=== PATIENT | female | born 2005 | race Caucasian/White ===

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

== ENCOUNTER 2024-12-31 13:42 | Emergency (ER) | payer MEDICAID, OTHER ==
[~2024-12-31] VITALS: Ht 167.6 cm; Wt 64.0 kg
[~2024-12-31 13:42] MED LIST changes: +ONDA-243 PO; -ONDA4TAB12 PO
[2024-12-31 14:13] VITALS: RESP 16; TEMP 97.9
[2024-12-31] MEDS ORDERED: AMOX-117 PO (18:10)
[2024-12-31] MEDS ORDERED: IBUP-860 PO (18:10)
--- NOTE | 2024-12-31 18:11 | Physician Documentation ---
HPI ~ General Chief Complaint: Jaw Pain Stated Complaint: JAW PAIN Time Seen by MD: 17:43 Primary Medical Doctor: [facility] Source: patient Mode of Arrival: POV Exam Limitations: no limitations History of Present Illness HPI Comment 19 Year old female with intermittent right upper jaw pain and dental pain for the past few days. Patient did have a dental appointment but was unable to attend and had to reschedule does still have wisdom teeth. Concerned for dental infection or abscess. No fevers. No difficulty breathing or swallowing. Has some intermittent pain that radiates down to the right lower jaw. Concerned because she had some cheek swelling. Patient denies fevers Medication Reconciliation Allergies: Coded Allergies: No Known Allergies (Unverified , 12/31/24) Scheduled Amox Tr/Potassium Clavulanate (Augmentin 875-125 Tablet), 1 TAB PO Q12H Cefdinir* (Cefdinir*), 1 CAP PO BID Scheduled PRN Ibuprofen (Ibu), 1 TAB PO Q4HPRN PRN for pain ONDANSETRON ODT 4mg tablet (Ondansetron Odt), 1 TABLET PO Q6H PRN for nausea/vomiting Miscellaneous Medications Home Med List (No Home Medications), (Reported) Home Med List (No Home Medications), (Reported) Past Medical History Past Medical History: No Pertinent History Past Surgical History: no surgical history Alcohol Use: None Drug Use: none Lives with: Family Lives In: Home Occupation: child Physical Exam Vital Signs: Temperature: 97.9, Source: Temporal, Heart Rate: 73, Respiratory Rate: 16, BP: 111/71, Pulse Oximetry: 99, Weight: 64.000 Oxygen Flow Rate: 0 Progress Results/Orders Results/Orders Vital Signs 12/31/24 12/31/24 14:13 18:15 Temp 97.9 Pulse 73 66 Resp 16 B/P (MAP) 111/71 130/80 (97) Pulse Ox 99 100 O2 Flow Rate 0 Departure Time of Disposition: 18:09 Disposition: 01 HOME / SELF CARE / HOMELESS Impression: Primary Impression: Jaw pain Additional Impression: Dental infection Condition: Stable Discharge Instructions: Dental Pain Additional Instructions: Call remake and maintain dental appointment as dental x-rays we will be more helpful in differentiating what is causing some of the jaw mouth pain. Take medications as prescribed monitor for any new or worsening symptoms and follow up with primary care Referrals: NO PRIMARY CARE PROVIDER (PCP) Prescriptions Ibuprofen (Ibu) 400 Mg Tablet 1 TAB PO Q4HPRN PRN for pain for 5 Days, #30 TAB 0 Refills NEEDED FOR PAIN Prov: DELORIS WASHINGTON NP 12/31/24 Amox Tr/Potassium Clavulanate (Augmentin 875-125 Tablet) 1 Each Tablet 1 TAB PO Q12H for 7 Days, #14 TAB Prov: DELORIS WASHINGTON NP 12/31/24 Education Educated: Patient Educated regarding: diagnosis, treatment, need for follow up Signature Scribe Signature: . Attestation: I have reviewed this case [id number] with the PA, including physical examination, laboratory and imaging results as appropriate. The patient was evaluated [id number] and I agree with the PA's notes. I agree with the findings, evaluation and disposition. DELORIS WASHINGTON NP Dec 31, 2024 18:11 ALEX MIRELES MD Jan 01, 2025 16:26
[2024-12-31 18:15] VITALS: BP 130/80; PULSE 66; O2SAT 100
== END 2024-12-31 18:27 | disposition home or self-care (01) ==
LOC: ER 13:42
DX: K04.7 Periapical abscess without sinus (principal); R68.84 Jaw pain
CPT/HCPCS: 99283

== ENCOUNTER 2025-05-09 13:35 | Emergency (ER) | payer OTHER ==
[~2025-05-09] VITALS: Ht 165.1 cm; Wt 64.7 kg
[~2025-05-09 13:35] MED LIST changes: +IBUP-860 PO
[2025-05-09 14:27] LABS: URINE HCG NEGATIVE (NEG)
[2025-05-09 14:30] LABS: LEUKOCYTE ESTERASE ,URINE MODERATE (Neg); NITRITES, URINE NEGATIVE (Neg); OCCULT BLOOD,URINE LARGE (Neg)
[2025-05-09 14:32] LABS: UA COLLECTION TYPE CLN CATCH MIDSTREAM
[2025-05-09 14:37] LABS: MUCUS STRANDS NONE SEEN /LPF (Neg); SQUAMOUS EPITHELIAL CELL,UR FEW /LPF (FEW); WBC CLUMPS,URINE MANY /HPF (NEGATIVE)
[2025-05-09] MEDS ORDERED: amox tr/potassium clavulanate 875/125mg TAB PO ONE (18:05)
[2025-05-09] MEDS: normal saline 1000ml 1,000 ML IVB ONE (18:24)
[2025-05-09 18:36] LABS: MEAN PLATELET VOLUME 7.8 FL (7.4-10.4); RED CELL DISTRIBUTION WIDTH 13.6 % (11.5-14.5)
[2025-05-09 18:49] LABS: CREATININE 0.66 MG/DL (0.40-0.90); TOTAL CARBON DIOXIDE 27.7 MMOL/L (24-32); eCRCL 121 ML/MIN; eGFR > 90 ML/MIN
[2025-05-09] MEDS: ketorolac trometh 30MG/ML vial 30 MG/ML VIAL IV ONE (18:52)
--- NOTE | 2025-05-09 19:12 | Physician Documentation ---
History of Present Illness Chief Complaint: Flank Pain Stated Complaint: KIDNEY STONE Time Seen by MD: 18:02 [facility] Mode of Arrival: POV HPI 20-year-old female presents to the ED with a complaint of pelvic pain flank pain nausea vomiting she states she has a history of kidney stone thinks she may have a UTI as well. Aortic during triage Day of Onset: May 09, 2025 Medication Reconciliation Allergies: Coded Allergies: No Known Allergies (Unverified , 05/09/25) Scheduled Cefdinir* (Cefdinir*), 1 CAP PO BID Scheduled PRN Ibuprofen (Ibu), 1 TAB PO Q4HPRN PRN for pain ONDANSETRON ODT 4mg tablet (Ondansetron Odt), 1 TABLET PO Q6H PRN for nausea/vomiting Miscellaneous Medications Home Med List (No Home Medications), (Reported) Home Med List (No Home Medications), (Reported) Past Medical History Past Medical History: No Pertinent History Past Surgical History: no surgical history Alcohol Use: None Drug Use: none Lives with: Family Lives In: Home Occupation: child Physical Exam Vital Signs: Temperature: 97.4, Source: Temporal, Heart Rate: 134, Respiratory Rate: 16, BP: 135/81, Pulse Oximetry: 98, Weight: 64.700 Oxygen Flow Rate: 0 Physical Exam General: Alert, no apparent distress. HEENT: PERRL, EOMI, no injection, moist mucous membranes. Neck: Full range of motion. Respiratory: Lungs clear, no respiratory distress. Chest: No accessory muscle use. Cardiovascular: Regular rate and rhythm, no murmurs. Gastrointestinal: Soft, nontender, nondistended. Bowels sounds present. Extremities: Normal range of motion, no deformity. Neurologic: Oriented x4. Psychiatric: Normal mood and affect. Skin: Normal color, warm and dry. No edema, no ecchymosis. Progress Results/Orders Results/Orders Orders - GARRISON WALSH TRIM MASTER OPERATOR Urinalysis, Cult If Indicated (05/09/25 18:04) * Iv Access / Saline Lock * (05/09/25 18:04) Ct Abdomen Pelvis (05/09/25 18:35) Completed Orders - GARRISON WALSH TRIM MASTER OPERATOR Cbc/Diff (05/09/25 18:04) BMP (05/09/25 18:04) Lipase (05/09/25 18:04) CMP (05/09/25 18:04) Lacticsepsis (05/09/25 18:04) Normal Saline 1000ml (0.9% Sodium Chlori (05/09/25 18:05) Ketorolac Trometh 30mg/Ml Vial (Toradol (05/09/25 18:25) Ct Abdomen Pelvis (05/09/25 18:35) Medications Received in ER Medications (Trade) Dose Ordered Sig/Cyndie Route PRN Reason Start Time Stop Time Status Last Admin Dose Admin Sodium Chloride 1,000 ml @ 1,000 mls/hr Q1H ONCE IVB 05/09/25 18:05 05/09/25 19:04 DC 05/09/25 18:24 1,000 MLS/HR (Toradol inj. 30mg/ml) 30 mg ONCE ONCE IV 05/09/25 18:25 05/09/25 18:27 DC 05/09/25 18:52 30 MG Vital Signs 05/09/25 05/09/25 05/09/25 13:49 18:35 18:52 Temp 97.4 Pulse 134 Resp 18 16 16 B/P (MAP) 135/81 Pulse Ox 98 O2 Flow Rate 0 Laboratory Tests Test 05/09/25 13:52 05/09/25 18:20 Urine Specimen Description Cln catch midstream Urine Color Yellow Urine Clarity Turbid Urine pH 6.5 Urine Specific [place] 1.025 Urine Protein 100 H Urine Glucose (UA) Negative Urine Ketones 15 H Urine Occult Blood Large H Urine Nitrite Negative Urine Bilirubin Small Urine Urobilinogen 1.0 Urine Leukocyte Esterase Moderate H Urine RBC 20-50 Urine WBC Tntc H Urine WBC Clumps Many Urine Squamous Epithelial Cells Few Urine Bacteria Few Urine Mucus None seen Urine Culture Indicated Indicated Volume Urine Centrifuged 2 ml Urine HCG, Qualitative Negative Urine Comment Low volume White Blood Count 8.7 Red Blood Count 4.56 Hemoglobin 15.0 Hematocrit 44.0 Mean Corpuscular Volume 96.5 Mean Corpuscular Hemoglobin 32.9 H Mean Corpuscular Hemoglobin Concent 34.0 Red Cell Distribution Width 13.6 Platelet Count 288 Mean Platelet Volume 7.8 Neutrophils (%) (Auto) 79.3 H Lymphocytes (%) (Auto) 11.6 L Monocytes (%) (Auto) 8.7 Eosinophils (%) (Auto) 0 Basophils (%) (Auto) 0.4 Neutrophils # (Auto) 6.9 Lymphocytes # (Auto) 1.0 L Monocytes # (Auto) 0.8 Eosinophils # (Auto) 0.0 Basophils # (Auto) 0.0 CBC Comment Sodium Level 137 Potassium Level 3.6 Chloride Level 101 Carbon Dioxide Level 27.7 Anion Gap 8 Blood Urea Nitrogen 3 L Creatinine 0.66 Estimated GFR/1.73 m2 > 90 BUN/Creatinine Ratio 4.5 L Glucose Level 99 Lactic Acid Level 1.1 Calcium Level 9.3 Total Bilirubin 0.4 Aspartate Amino Transf (AST/SGOT) 34 Alanine Aminotransferase (ALT/SGPT) 62 Alkaline Phosphatase 114 Total Protein 7.9 Albumin 4.4 Globulin 3.5 Albumin/Globulin Ratio 1.3 Lipase 27 Chemistry Comments Microbiology Date/Time Source Procedure Growth Status 05/09/25 14:39 Urine Clean Catch Midstream Urine Culture - Preliminary Culture received. Resulted Medical Decision Making Additional information obtaine: old records Findings Initially presented with concerns over possible kidney stone however her CT fin dings were negative for any calculus. Urinalysis is positive for RBCs and white blood cell count with a minor bacteria patient maintains that she does not have any found smelling urine or discharge but reports burning urination. She is currently sexually active in his not overly forthcoming regarding this I am moderately suspicious for an STI. I am going to treat her with Rocephin intramuscularly and discharge her on doxycycline Differential Dx:Considerations: Bowel obstruction, Ischemic bowel, Pancreatitis, PID, Urinary obstruction, Urinary tract infection Departure Disposition: HOME / SELF CARE / HOMELESS Impression: Primary Impression: Acute urinary tract infection Condition: Stable Discharge Instructions: Urinary Tract Infection, Adult, [id number] Referrals: NO PRIMARY CARE PROVIDER (PCP) Prescriptions Doxycycline Monohydrate (Doxycycline Monohydrate) 100 Mg Capsule 1 CAP PO Q12H for 10 Days, #20 CAP Prov: GARRISON WALSH NP 05/09/25 Signature Scribe Signature: Attestation: Scribed for Garrison Walsh Soil Checker by Garrison Rust NP . 05/09/25 19:11 GARRISON WALSH NP May 09, 2025 19:12
--- NOTE | 2025-05-09 19:13 | RADIOLOGY REPORT ---
EXAM: CT CT ABDOMEN PELVIS History: kidney stones Comparison Study: CT ABDOMEN PELVIS on DOS: 12/10/20 TECHNIQUE: Multidetector CT of the abdomen and pelvis without without IV contrast. Axial, coronal and sagittal multiplanar reformats were obtained from the axial data set by the technologist. Radiation Dose Information: CT Dose: CTDI volume is 10.72 mGy. Dose-length product is 486.44 mGy*cm FINDINGS: The lung bases are clear. Partially visualized heart is unremarkable. 2.2 cm left hepatic lobe cyst adjacent to the falciform ligament. Mild hepatosplenomegaly. Gallbladder, pancreas and adrenal glands are unremarkable. Kidneys and ureters are unremarkable. Mild wall thickening of the Urinary bladder which is most likely from inadequate distention. Stomach is unremarkable. Small bowel loops unremarkable. Appendix is not completely visualized with a visualized appendix unremarkable. Without complete visualization of the appendix, can not exclude acute appendicitis. Small to moderate amount of fecal material within the colon. No evidence of intraperitoneal free air or free fluid. No evidence of aortic aneurysm. Slightly prominent Mesenteric lymph nodes of the right lower abdominal quadrant measuring up to 0.5 cm in short axis. The soft tissues are unremarkable. No evidence of acute osseous abnormalities. IMPRESSION: Mild wall thickening of the urinary bladder with be from inadequate distention/ cystitis. Small to moderate amount of fecal material within the colon. Slightly prominent mesenteric lymph nodes which are be reactive. Hepatosplenomegaly. Small hepatic cyst.
[2025-05-09] MEDS ORDERED: DOXY-460 PO (19:56)
[2025-05-09] MEDS: CefTRIAXone 1000mg IM Kit (w/lidocaine diluent) IM ONE (20:10)
[2025-05-09 20:16] VITALS: BP 139/84; PULSE 112; RESP 16; TEMP 97.4; O2SAT 99
== END 2025-05-09 20:20 | disposition home or self-care (01) ==
LOC: ER 13:36
DX: N39.0 Urinary tract infection, site not specified (principal); Z87.442 Personal history of urinary calculi
CPT/HCPCS: 36415; 74176; 80053; 81001; 81025; 83605; 83690; 85025; 87088; 96361; 96372; 96374; 99285; J0696; J1885; J7030; A6449